=== PATIENT | male | born 1955 | race African-American/Black ===

== ENCOUNTER 2017-01-31 18:08 | Emergency (ER) | payer MEDICAID, OTHER ==
[~2017-01-31] VITALS: Ht 182.9 cm; Wt 85.0 kg
[2017-01-31] MEDS ORDERED: [UNRECOGNIZED DRUG - OTHER] (18:31)
[2017-01-31] MEDS ORDERED: BENZ1TAB7 PO (18:31)
[2017-01-31] MEDS ORDERED: DIVA500T PO (18:31)
[2017-01-31 18:35] VITALS: BP 165/98
[2017-01-31] MEDS ORDERED: LIDOCAINE HCL 1%/EPI 1:200,000 30 ML VIAL MC ONE (18:45)
[2017-01-31] MEDS ORDERED: TETANUS, DIPHTHERIA, PERTUSSIS VAC/PF 0.5ML (>7YR OLD) IM ONE (18:45)
[2017-01-31 19:02] LABS: BASOPHILS % 0.5 % (0.0-2.0); EOSINOPHILS % 3.2 % (0.0-5.0); HEMOGLOBIN. 12.1 g/dL (14.0-18.0); LYMPHOCYTES % 25.1 % (20.0-50.0); MEAN CORPUSCULAR HEMOGLOBIN 32.4 pg (28.0-32.0); MEAN CORPUSCULAR HGB CONC 34.7 g/dL (31.0-37.0); MEAN CORPUSCULAR VOLUME 93.5 fL (80.0-94.0); MEAN PLATELET VOLUME 9.5 fl (7.4-10.4); MONOCYTES % 6.9 % (2.0-8.0); NEUTROPHILS % 64.3 % (40.0-76.0); PLATELET 190 x1000/uL (130-400); RED BLOOD CELL COUNT 3.74 mill/uL (4.7-6.1); RED CELL DISTRIBUTION WIDTH 12.9 % (11.6-14.6); WHITE BLOOD COUNT 6.1 x1000/uL (4.5-11.0)
[2017-01-31 19:05] LABS: CHLORIDE 113 mEq/L (98-107); INDEX HEMOLYSI 1 (1-3); INDEX ICTERIC 1 (1-4); INDEX LIPEMIC 1 (1-3)
[2017-01-31 19:06] LABS: INR 1.1
[2017-01-31 19:08] LABS: CALCIUM 9.3 mg/dL (8.5-10.1)
[2017-01-31 19:09] LABS: ALBUMIN 3.6 g/dL (3.4-5.0); ANION GAP 9; CARBON DIOXIDE 26 mEq/L (21-32); UREA NITROGEN BLOOD 28 mg/dL (7-21)
[2017-01-31 19:14] LABS: ALANINE AMINOTRANSFERASE 21 IU/L (13-61); eGFR 35 mL/min (>60)
== END 2017-01-31 21:42 | disposition home or self-care (01) ==
LOC: ER 18:10
DX: S01.81XA Laceration without foreign body of other part of head, initial encounter (principal); F20.9 Schizophrenia, unspecified; F17.210 Nicotine dependence, cigarettes, uncomplicated; W10.9XXA Fall (on) (from) unspecified stairs and steps, initial encounter; Y93.89 Activity, other specified; Y92.009 Unspecified place in unspecified non-institutional (private) residence as the place of occurrence of the external cause; Y99.8 Other external cause status
CPT/HCPCS: 12013; 36415; 70450; 71010; 80053; 85025; 85610; 90471; 90715; 93005; 99285; X7700; Z7610

== ENCOUNTER 2019-12-27 21:29 | Inpatient (IN) | payer MEDICARE, MEDICAID ==
[~2019-12-27] VITALS: Ht 177.8 cm; Wt 97.5 kg
[~2019-12-27 21:29] MED LIST: BENZ1TAB7 PO; DIVA-75 PO; [UNRECOGNIZED DRUG - OTHER] PO
[2019-12-28 00:29] LABS: BASOPHILS % 0.5 % (0.0-2.0); EOSINOPHILS % 0.3 % (0.0-5.0); HEMATOCRIT. 35.5 % (42.0-52.0); HEMOGLOBIN. 11.7 g/dL (14.0-18.0); LYMPHOCYTES % 7.2 % (20.0-50.0); MEAN CORPUSCULAR HEMOGLOBIN 31.5 pg (28.0-32.0); MEAN PLATELET VOLUME 8.9 fl (7.4-10.4); MONOCYTES % 11.2 % (2.0-8.0); NEUTROPHILS % 80.8 % (40.0-76.0); PLATELET 171 x1000/uL (130-400); RED CELL DISTRIBUTION WIDTH 14.4 % (11.6-14.6)
[2019-12-28 00:36] LABS: CHLORIDE 118 mEq/L (98-107)
[2019-12-28 00:40] LABS: ETHANOL BLOOD < 10 mg/dL
[2019-12-28] MEDS: SODIUM CHLORIDE 0.9% 1,000 ML IV ONE ×3 (00:45→01:20)
[2019-12-28 00:50] LABS: CLARITY URINE CLEAR (CLEAR); COLOR URINE YELLOW (YELLOW); KETONES URINE NEGATIVE (NEGATIVE); LEUKOCYTE ESTERASE URINE NEGATIVE (NEGATIVE); NITRITE URINE NEGATIVE (NEGATIVE); OCCULT BLOOD URINE 2+ (NEGATIVE); PROTEIN URINE 1+ (NEGATIVE); SPECIFIC GRAVITY URINE 1.009 (1.005-1.030)
[2019-12-28 01:04] LABS: *AMPHETAMINES SCREEN URINE NEGATIVE (NEGATIVE); *BARBITURATES SCREEN URINE NEGATIVE (NEGATIVE); *BENZODIAZEPINES SCREEN URINE NEGATIVE (NEGATIVE); *COCAINE SCREEN URINE NEGATIVE (NEGATIVE); METHADONE URINE SCREEN NEGATIVE (NEGATIVE); OPIATES URINE SCREEN NEGATIVE (NEGATIVE)
[2019-12-28 01:05] LABS: CANNABINOID URINE SCREEN NEGATIVE (NEGATIVE); PHENCYCLIDINE URINE SCREEN NEGATIVE (NEGATIVE)
[2019-12-28] MEDS ORDERED: AZITHROMYCIN 500 MG in DEXT 5% WATER 250 ML IV ONE (03:00)
[2019-12-28] MEDS ORDERED: CEFTRIAXONE 1 G PREMIX 50 ML IV ONE (03:00)
[2019-12-28] MEDS ORDERED: ACETAMINOPHEN 325MG TABLET PO PRN (08:45)
[2019-12-28] MEDS ORDERED: ONDANSETRON HCL 4MG/2ML INJ IV PRN (08:45)
[2019-12-28] MEDS ORDERED: PIPERACILLIN/TAZ 3.375G PREMIX 50 ML IV SCH (09:15)
[2019-12-28] MEDS: CITRIC ACID/SODIUM CITRATE SOLN 30ML UDC PO SCH ×3 (11:45→17:00)
[2019-12-28 12:28] LABS: HEPATITIS B SURFACE ANTIGEN NEGATIVE
[2019-12-28 12:57] LABS: HEPATITIS A AB IGM NEGATIVE (NEGATIVE)
[2019-12-28] MEDS ORDERED: PIPERACILLIN/TAZOBACTAM 3.375 G in DEXT 5% WATER 100 ML IV SCH (15:00)
[2019-12-28] MEDS ORDERED: SODIUM BICARBONATE 100 MEQ in DEXTROSE 5% WATER 1,000 ML IV SCH (15:30)
[2019-12-29 04:44] LABS: BASOPHILS % 0.2 % (0.0-2.0); EOSINOPHILS % 0.6 % (0.0-5.0); HEMOGLOBIN. 11.5 g/dL (14.0-18.0); LYMPHOCYTES % 9.6 % (20.0-50.0); MEAN CORPUSCULAR HEMOGLOBIN 31.8 pg (28.0-32.0); MEAN CORPUSCULAR VOLUME 96.6 fL (80.0-94.0); MEAN PLATELET VOLUME 9.3 fl (7.4-10.4); MONOCYTES % 11.2 % (2.0-8.0); NEUTROPHILS % 78.4 % (40.0-76.0); PLATELET 162 x1000/uL (130-400); RED BLOOD CELL COUNT 3.62 mill/uL (4.7-6.1); RED CELL DISTRIBUTION WIDTH 14.1 % (11.6-14.6)
[2019-12-29] MEDS: CITRIC ACID/SODIUM CITRATE SOLN 30ML UDC PO SCH ×3 (09:00→19:45)
[2019-12-29] MEDS: THIAMINE HCL 100MG TABLET PO SCH ×2 (09:00→17:37)
[2019-12-29] MEDS: ZINC SULFATE 220 MG ( 50 ) CAPSULE PO SCH (09:00)
[2019-12-29] MEDS: ASCORBIC ACID 500 MG TABLET PO SCH ×2 (09:00→17:37)
[2019-12-29] MEDS ORDERED: CITRIC ACID/SODIUM CITRATE SOLN 30ML UDC PO NR (09:30)
[2019-12-29] MEDS ORDERED: CEFTRIAXONE 1 G PREMIX 50 ML IV NR (09:30)
[2019-12-29] MEDS: AZITHROMYCIN 250 MG TABLET PO SCH (10:19)
[2019-12-29] MEDS: NICOTINE 14MG PATCH TD SCH (14:15)
[2019-12-29] MEDS: MAGNESIUM OXIDE 400MG TABLET PO SCH (14:15)
[2019-12-29] MEDS: SODIUM BICARBONATE 100 MEQ in DEXTROSE 5% WATER 1,000 ML IV SCH (15:30)
[2019-12-29] MEDS ORDERED: SODIUM BICARBONATE 100 MEQ in DEXTROSE 5% WATER 1,000 ML IV SCH (15:30)
[2019-12-29] MEDS: ENOXAPARIN 40MG/0.4ML SYR SUBCUT SCH (17:37)
[2019-12-29 19:59] VITALS: BP 133/82
[2019-12-29 20:03] VITALS: BP 133/82
[2019-12-30 00:05] VITALS: BP 130/92
[2019-12-30 04:00] VITALS: BP 136/86
[2019-12-30 07:06] LABS: BASOPHILS % 0.2 % (0.0-2.0); HEMATOCRIT. 30.7 % (42.0-52.0); HEMOGLOBIN. 10.2 g/dL (14.0-18.0); LYMPHOCYTES % 8.2 % (20.0-50.0); MEAN CORPUSCULAR HEMOGLOBIN 31.4 pg (28.0-32.0); MEAN CORPUSCULAR VOLUME 94.7 fL (80.0-94.0); MEAN PLATELET VOLUME 9.3 fl (7.4-10.4); MONOCYTES % 10.3 % (2.0-8.0); NEUTROPHILS % 80.3 % (40.0-76.0); PLATELET 142 x1000/uL (130-400); RED BLOOD CELL COUNT 3.24 mill/uL (4.7-6.1); RED CELL DISTRIBUTION WIDTH 13.8 % (11.6-14.6)
[2019-12-30 07:54] LABS: PHOSPHORUS 3.7 mg/dL (2.5-4.9)
[2019-12-30 08:00] VITALS: BP 117/67
[2019-12-30] MEDS: THIAMINE HCL 100MG TABLET PO SCH ×2 (08:45→16:45)
[2019-12-30] MEDS: NICOTINE 14MG PATCH TD SCH (08:46)
[2019-12-30] MEDS: ASCORBIC ACID 500 MG TABLET PO SCH ×2 (08:46→16:45)
[2019-12-30] MEDS: ZINC SULFATE 220 MG ( 50 ) CAPSULE PO SCH (08:46)
[2019-12-30] MEDS: CITRIC ACID/SODIUM CITRATE SOLN 30ML UDC PO SCH ×3 (08:46→16:46)
[2019-12-30 11:52] VITALS: BP 185/83
[2019-12-30 12:00] VITALS: BP 99/57
[2019-12-30] MEDS: SODIUM BICARBONATE 100 MEQ in DEXTROSE 5% WATER 1,000 ML IV SCH (12:01)
[2019-12-30] MEDS: CEFTRIAXONE 1 G PREMIX 50 ML IV SCH (12:01)
[2019-12-30] MEDS: AZITHROMYCIN 250 MG TABLET PO SCH (13:31)
[2019-12-30] MEDS: MAGNESIUM OXIDE 400MG TABLET PO SCH ×2 (13:32→16:46)
[2019-12-30 16:00] VITALS: BP 117/68
[2019-12-30] MEDS: ENOXAPARIN 40MG/0.4ML SYR SUBCUT SCH (16:46)
[2019-12-31] VITALS: BP 109/63
[2019-12-31 04:00] VITALS: BP 95/59
[2019-12-31 08:00] VITALS: BP 113/62
[2019-12-31] MEDS: CITRIC ACID/SODIUM CITRATE SOLN 30ML UDC PO SCH ×3 (09:32→17:00)
[2019-12-31] MEDS: AZITHROMYCIN 250 MG TABLET PO SCH (09:33)
[2019-12-31] MEDS: NICOTINE 14MG PATCH TD SCH (09:33)
[2019-12-31] MEDS: MAGNESIUM OXIDE 400MG TABLET PO SCH ×2 (09:33→14:15)
[2019-12-31] MEDS: CEFTRIAXONE 1 G PREMIX 50 ML IV SCH ×2 (11:00→20:00)
[2019-12-31] MEDS: SODIUM BICARBONATE 100 MEQ in DEXTROSE 5% WATER 1,000 ML IV SCH ×2 (11:25→20:34)
[2019-12-31 12:00] VITALS: BP 118/64
[2019-12-31] MEDS: ENOXAPARIN 40MG/0.4ML SYR SUBCUT SCH (17:00)
[2019-12-31 20:00] VITALS: BP 123/75
[2020-01-01] VITALS: BP 129/61
[2020-01-01 04:00] VITALS: BP 115/67
[2020-01-01 08:00] VITALS: BP 123/68
[2020-01-01] MEDS: MAGNESIUM OXIDE 400MG TABLET PO SCH ×2 (08:58→13:03)
[2020-01-01] MEDS: AZITHROMYCIN 250 MG TABLET PO SCH (08:58)
[2020-01-01] MEDS: CITRIC ACID/SODIUM CITRATE SOLN 30ML UDC PO SCH ×3 (08:58→17:07)
[2020-01-01] MEDS: NICOTINE 14MG PATCH TD SCH (09:02)
[2020-01-01 12:38] VITALS: BP 122/70
[2020-01-01 16:00] VITALS: BP 123/80
[2020-01-01] MEDS: SODIUM BICARBONATE 100 MEQ in DEXTROSE 5% WATER 1,000 ML IV SCH (16:50)
[2020-01-01] MEDS: ENOXAPARIN 40MG/0.4ML SYR SUBCUT SCH (17:07)
[2020-01-01 20:00] VITALS: BP 124/79
[2020-01-01] MEDS: CEFTRIAXONE 1 G PREMIX 50 ML IV SCH (20:00)
[2020-01-02] VITALS (7 sets, daily range): BP systolic 108–120; BP diastolic 59–72
[2020-01-02] MEDS: SODIUM BICARBONATE 100 MEQ in DEXTROSE 5% WATER 1,000 ML IV SCH (07:30)
[2020-01-02] MEDS: MAGNESIUM OXIDE 400MG TABLET PO SCH ×2 (08:16→12:40)
[2020-01-02] MEDS: CITRIC ACID/SODIUM CITRATE SOLN 30ML UDC PO SCH ×3 (08:16→16:58)
[2020-01-02] MEDS: NICOTINE 14MG PATCH TD SCH (08:16)
[2020-01-02] MEDS: ENOXAPARIN 40MG/0.4ML SYR SUBCUT SCH (16:58)
[2020-01-02] MEDS: CEFTRIAXONE 1 G PREMIX 50 ML IV SCH (20:00)
[2020-01-03] VITALS: BP 105/66
[2020-01-03 04:00] VITALS: BP 110/68
[2020-01-03 08:00] VITALS: BP 101/57
[2020-01-03] MEDS: NICOTINE 14MG PATCH TD SCH (09:00)
[2020-01-03] MEDS: MAGNESIUM OXIDE 400MG TABLET PO SCH (09:22)
[2020-01-03] MEDS: CITRIC ACID/SODIUM CITRATE SOLN 30ML UDC PO SCH (09:22)
[2020-01-03] MEDS ORDERED: LORAZEPAM 2MG/ML CPJ IV PRN (10:15)
[2020-01-03] MEDS ORDERED: HALOPERIDOL LACTATE 5MG/ML VIAL IM PRN (10:30)
== END 2020-01-03 10:36 | disposition left against medical advice (07) | DRG 469 ==
LOC: ER 21:29 → 7WST 12-29 05:21 → ENRESERV 12-29 17:04 → 5WST 12-30 10:17 → 6EST 01-03 10:13
PROVIDERS: ADMIT Internal Medicine; ATTEND Internal Medicine
DX: N17.0 Acute kidney failure with tubular necrosis (principal); J96.01 Acute respiratory failure with hypoxia; E43 Unspecified severe protein-calorie malnutrition; G93.40 Encephalopathy, unspecified; E87.2 Acidosis; E87.8 Other disorders of electrolyte and fluid balance, not elsewhere classified; R65.10 Systemic inflammatory response syndrome (SIRS) of non-infectious origin without acute organ dysfunction; I12.0 Hypertensive chronic kidney disease with stage 5 chronic kidney disease or end stage renal disease; B34.9 Viral infection, unspecified; D64.9 Anemia, unspecified; Z53.29 Procedure and treatment not carried out because of patient's decision for other reasons; F17.210 Nicotine dependence, cigarettes, uncomplicated; F20.9 Schizophrenia, unspecified; R74.0 Nonspecific elevation of levels of transaminase and lactic acid dehydrogenase [LDH]; Z66 Do not resuscitate; Z20.828 Contact with and (suspected) exposure to other viral communicable diseases; N18.5 Chronic kidney disease, stage 5; Z59.0 Homelessness; Z79.899 Other long term (current) drug therapy; Z68.30 Body mass index [BMI] 30.0-30.9, adult; Z71.6 Tobacco abuse counseling; Z82.49 Family history of ischemic heart disease and other diseases of the circulatory system
CPT/HCPCS: 36415; 71045; 80048; 82550; 83735; 84100; 85025; 87635; 96361; 96365; 96366; 96367; 99285; J0456; J0696; J1630; J1650; J2543; J3490; J7030; J7060; J7070